=== PATIENT | female | born 1955 | race Caucasian/White ===

== ENCOUNTER 2017-01-03 15:30 | Outpatient (CLI) | payer BC ==
--- NOTE | 2017-01-03 20:11 | MRI ---
RIGHT HIP MRI WITHOUT IV CONTRAST: 01/03/17 HISTORY: Right hip pain with concern for osteoarthritis. Multiplanar and multisequence MRI examination of the right hip is performed. There is some generalize d articular cartilage loss, severe, of the right hip with some right hip joint effusion. There are nu merous prominent sized subchondral cystic changes involving the anterior acetabulum secondary to prom inent degenerative changes. There is an irregular anterior labrum consistent with a degenerative type labral tear. There is some very subtle marrow signal in the femoral neck but this does not appear to represent a fracture although conceivably could be related to some mild stress related changes. Glut eal minimus and gluteal medius tendinopathy with some minimal fluid and fat stranding in the trochant lashae bursa. There is also evidence for insertional tendinopathy of the right common hamstring tendon. No evidence for avascular necrosis. IMPRESSION: Generalized osteoarthrosis with cartilage loss of the right hip joint with some prominent subchondral cystic changes involving the anterior acetabulum with some minimal adjacent marrow edema. Evidence f or degenerative type anterior labral tear. Subtle nonspecific increased signal in the femoral head/ne ck region without an associated fracture or avascular necrosis. Abnormal right hip joint effusion. Ri ght gluteal tendinopathy and minimal fluid in both right and left trochanteric bursal regions. POS: LANCE
== END 2017-01-03 15:31 | disposition home or self-care (01) ==
LOC: TBSIIMAG 15:30 → EDBD 16:00
PROVIDERS: ATTEND Internal Medicine
DX: M16.11 Unilateral primary osteoarthritis, right hip (principal); S73.191A Other sprain of right hip, initial encounter; M25.451 Effusion, right hip; M76.01 Gluteal tendinitis, right hip; M87.051 Idiopathic aseptic necrosis of right femur

== ENCOUNTER 2017-11-24 15:30 | Outpatient (CLI) | payer BC | END 2017-11-24 15:31 | disposition home or self-care (01) | LOC: BICMAMMO 15:30 | PROVIDERS: ATTEND Internal Medicine | DX: Z12.31 Encounter for screening mammogram for malignant neoplasm of breast (principal); R92.1 Mammographic calcification found on diagnostic imaging of breast | CPT/HCPCS: 77063; 77067 ==

== ENCOUNTER 2020-06-19 13:27 | Outpatient (CLI) | payer BC | END 2020-06-19 13:28 | disposition home or self-care (01) | LOC: BICMAMMO 13:27 | PROVIDERS: ATTEND Internal Medicine | DX: Z12.31 Encounter for screening mammogram for malignant neoplasm of breast (principal) | CPT/HCPCS: 77063; 77067 ==

== ENCOUNTER 2021-11-19 10:39 | Outpatient (CLI) | payer BC | END 2021-11-19 10:40 | disposition home or self-care (01) | LOC: BICMAMMO 10:39 | PROVIDERS: ATTEND Internal Medicine | DX: Z12.31 Encounter for screening mammogram for malignant neoplasm of breast (principal); R92.1 Mammographic calcification found on diagnostic imaging of breast | CPT/HCPCS: 77063; 77067 ==

== ENCOUNTER 2023-11-24 11:19 | Outpatient (CLI) | payer BC | END 2023-11-24 11:20 | disposition home or self-care (01) | LOC: BICMAMMO 11:19 | PROVIDERS: ATTEND Internal Medicine | DX: Z12.31 Encounter for screening mammogram for malignant neoplasm of breast (principal) | CPT/HCPCS: 77063; 77067 ==